=== PATIENT | male | born 1985 | race African-American/Black ===

== ENCOUNTER 2024-02-12 17:02 | Emergency (ER) | payer OTHER, SELFPAY ==
[2024-02-12 17:46] VITALS: BP 133/92; PULSE 75; RESP 16; TEMP 36.6; O2SAT 98; BMI 31.3
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
[2024-02-12] MEDS: predniSONE 20 MG TABLET 40 MG PO (19:51)
[2024-02-12] MEDS: diazePAM 5 MG TABLET PO (19:51)
== END 2024-02-12 21:29 | disposition home or self-care (01) ==
PROVIDERS: Emergency Provider Emergency Medicine; PCP Internal Medicine
DX: M54.16 Radiculopathy, lumbar region (principal); M54.41 Lumbago with sciatica, right side; E11.9 Type 2 diabetes mellitus without complications
CPT/HCPCS: 99281; 99283